=== PATIENT | female | born 1995 | race Caucasian/White ===

== ENCOUNTER 2021-08-13 07:25 | Emergency (ER) | payer OTHER ==
[~2021-08-13] VITALS: Ht 170.2 cm; Wt 87.1 kg
[2021-08-13 07:29] VITALS: BP 140/62
--- NOTE | 2021-08-13 07:35 | NUR ---
PATIENT AMBULATED TO BED 11.
--- NOTE | 2021-08-13 07:40 | NUR ---
PATIENT PRESENTS TO ED WITH EPIGASTRIC PAIN, RADIATING TO BACK. PT STATES PAIN STARTED AROUND 0200 THIS MORING. PT STATED SHE VOMITED X3 W/ NO BLOOD SINCE 0200; SKIN IS PINK/WARM/DRY; DENIES DIARRHEA OR CONSTIPATION; AAOX4 WITH EVEN AND STEADY GAIT; PT DENIES ANY FEVER, CP, SOB, OR COUGH AT THIS TIME; PATIENT STATES PAIN OF 10/10 AT THIS TIME; VSS; PATIENT POSITIONED FOR COMFORT; HOB ELEVATED; BEDRAILS UP X2; BED DOWN. ER MD MADE AWARE OF PT STATUS. PT STATES LAYING DOWN MAKES THE PAIN WORSE. HX: LACTOSE INTOLERANT ALLERGIES: UNK ANESTHETIC MEDS: NONE
--- NOTE | 2021-08-13 07:49 | NUR ---
ER AT BEDSIDE
[2021-08-13] MEDS ORDERED: ONDANSETRON 4 MG ODT PO ONE (07:50)
--- NOTE | 2021-08-13 07:51 | NUR ---
dr. estrella bedside evaluting pt
[2021-08-13] MEDS ORDERED: KETOROLAC 60 MG/2 ML VIAL IM ONE (07:55)
[2021-08-13] MEDS ORDERED: ONDA8TAB87 PO (08:00)
[2021-08-13] MEDS ORDERED: IBUP-2213 PO (08:00)
[2021-08-13 08:25] VITALS: BP 140/62
--- NOTE | 2021-08-13 08:25 | NUR ---
Patient discharged with v/s stable. Written and verbal after care instructions given and explained. Patient alert, oriented and verbalized understanding of instructions. Ambulatory with steady gait. All questions addressed prior to discharge. ID band removed. Patient advised to follow up with PMD. Rx of IBUPROFEN AND ONDANSETRON given. Patient educated on indication of medication including possible reaction and side effects. Opportunity to ask questions provided and answered. PT HAS CALM DEMEANOR, STEADY GAIT, AND UNLABORED BREATHING.
== END 2021-08-13 08:25 | disposition home or self-care (01) ==
LOC: MED 07:25
DX: R10.13 Epigastric pain (principal); R11.2 Nausea with vomiting, unspecified
CPT/HCPCS: 81002; 81025; 96372; 99283; J1885; Q0162